=== PATIENT | female | born 1975 | race Caucasian/White ===

== ENCOUNTER 2020-06-07 12:16 | Inpatient (IN) | payer OTHER ==
[~2020-06-07] VITALS: Ht 180.3 cm; Wt 128.1 kg
[2020-06-07] VITALS (14 sets, daily range): BP systolic 122–172; BP diastolic 68–114
--- NOTE | ~2020-06-07 | HC ---
[facility] [place] [address] CONSULTATION Name: JACOB JOHNSON Room #: 242-P ADM IN M.R.#: [id number] Admission: 06/07/20 Attend Phys: Cedric Escalera MD Discharge: Date of : 77 Report #: [id number] THIS REPORT FOR: cc: FERCHO - No family physician/PCP FAM - No family physician/PCP Shaka Garzon MD ~ DATE OF SERVICE: 06/07/2020 HISTORY OF PRESENT ILLNESS: This 44-year-old female patient who was seen by me because she started having weakness and numbness on the left side and that was associated with chest pain. She apparently had similar symptoms in [place] and she was diagnosed with TIA or a small stroke and was given TPA. She recovered from that. She had another episode before that. Initially, she gave a history that her MRI showed a couple of spots, but we had no records. She does have risk factors like diabetes and hypertension. She does have a family history of heart attack and stroke. REVIEW OF SYSTEMS: Positive for tremor. Tremor is in both hands. She does have a history of depression. She saw a psychiatrist about 3 years ago. Now, she just takes antidepressant from her family doctor. She works in a Dermatology office. I asked her whether she has more depression recently, I did not get a good answer. She is complaining of chest pain and she had similar symptoms last time and chest pain is not any better. I do not think they found any cause for her chest pain the last time she had those. That was a relevant 14-point review of system. PAST MEDICAL HISTORY: Positive for TIA. FAMILY HISTORY: Positive for stroke as well as heart attack. SOCIAL HISTORY: She drinks alcohol on special occasions. PHYSICAL EXAMINATION: Was carried out numerous times. She is alert. She is responsive. She never had any speech difficulty. On cranial nerve examination, She has no hemianopsia. There is no facial weakness I can appreciate. She does have some subjective symptom there. Objectively, she says she feel pinprick on both sides. In the left hand she is able to raise against the gravity, but then instead of coming down in jerking movement, she just fall in a very unusual fashion, same is true with the left leg. She is able to appreciate the pinprick and she says she can appreciate sensation there. There is no meningeal sign in this patient. Cardiac examination is unremarkable. She has a monitor put in to look for atrial fibrillation. This is as complex case as it can become. When I saw her first time her symptoms look pretty unusual. I discussed with her that I cannot confirm or [address] [address] CONSULTATION Name: JACOB JOHNSON Room #: 242-P [facility] IN .R.#: [id number] Admission: 06/07/20 Attend Phys: Cedric Escalera MD Discharge: Date of : 77 Report #: [id number] rule out the stroke at this time, but the time in which the treatment can be given with the TPA is limited. So most of the time TPA is given before the stroke can definitely be confirmed in the patient like her. We talked about TPA and we talked about alternatives. She decided to wait until the CT angiogram and perfusion came. CT angiogram and perfusion is entirely normal. I went back and got it reviewed by another radiologist and looked at the films myself and it is a very symmetrical and normal study. The problem with the CT angiogram is that it is going to miss the lacunar CVA, which the patient is predisposed because of diabetes and hypertension. Our MRI machine is broken. It will not be fixed until tomorrow. I cannot get any information from anybody if arrangement can be made to transfer the patient to get an MRI done at some other place, but that will be a redundant information. This is because she is not a thrombectomy candidate because there is no embolus or thrombus is there. TPA time is either running out or has run out. Her symptoms started about 11:00, but then she said it may have started at 11:30, but even then time is close to running out and if MRI is arranged in another institution and is done and then interpreted, it will be beyond the limit for TPA. Fortunately, we were able to get hold of her doctor and she was able to pull the chart and she very nicely read the reports on her. Apparently, she had left sided symptoms and a left sided stroke as interpreted MRI the last time, but that does complicate the issue that the fact that she had a stroke that time will worry me. So, I came back and talked to the patient again. I discussed with her and her brother TPA again because that makes it a stronger indication for TPA, although the situation is still fluid and her symptoms are somewhat unusual and more importantly if she had a stroke on the left side that did not explain her left sided symptom and that does not explain her chest symptoms. The finding of last stroke does make the indication for TPA stronger and I discussed that part with her and her brother. I was going to proceed with the TPA, in fact they were all ready to mix the TPA, but both patient and the family decided they do not want TPA and they declined the TPA. In these circumstances, I think we will give our patient a loading dose of Plavix and she is already on aspirin, so we will continue and the other information the doctor provided is that they have not found any atrial fibrillation. In fact, her cardiac workup including catheterization was unremarkable as per conversation with the doctor. I spent more than 90 minutes of time taking care of this patient today and as the situation was very complex, but in the end although we were able to get some information from the doctor after trying a lot that did not explain the symptoms very well, but provided some information which made the indication for TPA stronger. However, the situation became redundant because the patient and the brother declined TPA. They are competent to make decision and we will do the Plavix and aspirin and we will do an MRI as soon as MRI can be done. More than [facility] [address] [place] [address] CONSULTATION Name: JACOB JOHNSON Room #: 242-P [facility] IN ..#: [id number] Admission: 06/07/20 Attend Phys: Cedric Escalera MD Discharge: Date of : 77 Report #: [id number] 90 minutes of time was spent taking care of this patient today and majority was spent counseling and coordinating the care as summarized above. By: [id number] Shaka Garzon MD /nt
[2020-06-07 13:05] LABS: ABSOLUTE NEUTROPHILS 5.4 thou/uL (1.4-8.2); BASOPHILS 1.1 % (0.0-2.0); EOSINOPHILS 1.4 % (0.0-3.0); HEMATOCRIT 42.4 % (37.0-47.0); HEMOGLOBIN 13.9 gm/dL (12.0-15.0); LYMPHOCYTES 24.9 % (24.0-44.0); MCH 29.6 pg (26.0-34.0); MCHC 32.8 g/dL (28.0-37.0); MCV 90.2 fL (80.0-100.0); MONOCYTES 5.6 % (1.0-8.0); RDW 14.4 % (10.5-14.5)
[2020-06-07 13:18] LABS: ANION GAP 10 mmol/L (7-16); BUN 15 mg/dL (7-18); CALCIUM 9.7 mg/dL (8.5-10.1); CHLORIDE 104 mmol/L (98-107); CO2 30 mmol/L (21-32); GLUCOSE 147 mg/dL (74-106); POTASSIUM 3.7 mmol/L (3.5-5.1); SODIUM 144 mmol/L (136-145)
[2020-06-07 13:20] LABS: APTT 26.2 Seconds (24.5-32.8); PROTIME 10.9 Seconds (9.3-11.4)
[2020-06-07 13:28] LABS: ALBUMIN 3.6 g/dL (3.4-5.0); SGOT 10 U/L (15-37); SGPT 18 U/L (14-59); TOTAL BILIRUBIN 0.4 mg/dL (0.2-1.0); TOTAL PROTEIN 7.8 g/dL (6.4-8.2); TROPONIN-I <0.06 ng/mL (<0.06)
[2020-06-07 13:35] LABS: LARGE PLATELETS FEW; PLATELET COUNT 256 thou/uL (150-400)
[2020-06-07] MEDS ORDERED: PROZAC40 MG PO (14:42)
[2020-06-07] MEDS ORDERED: KAPSPARGO SPRI100 MG PO (14:43)
[2020-06-07] MEDS ORDERED: ZESTRIL40 MG PO (14:43)
[2020-06-07] MEDS ORDERED: GLUCOPHAGE1000 MG PO (14:44)
[2020-06-07] MEDS ORDERED: PRIMIDONE 250M250 MG PO (14:44)
[2020-06-07] MEDS ORDERED: GLUCOTROL XL5 MG PO (14:45)
[2020-06-07] MEDS ORDERED: HYDROXYZINE PAM25 M1 PO (14:46)
[2020-06-07] MEDS ORDERED: PRAVASTATIN SOD10 MG PO (15:09)
[2020-06-07] MEDS ORDERED: TRULICITY1.5 MG/0.5 SUBQ (15:09)
[2020-06-07] MEDS ORDERED: OMEPRAZOLE40 MG PO (15:09)
--- NOTE | 2020-06-07 15:20 | NUR ---
This prevention coordinator at bedside. Dr Garzon consults with patient multiple times. He explains the risks and benefits of tPA administration. Family at bedside and brother on phone. Patient originally consents to tPA but then later denies consent for tPA. No medication was given. Patients NIHSS unchanged from previous assessment. Refusal signed by patient and witnessed by myself and ELIANE Padilla. Orders to continue stroke protocol with Plavix instead per Dr Garzon. ED RN notified.
--- NOTE | 2020-06-07 16:47 | NUR ---
ATTEMPTED TO CALL REPORT TO ICU. NO ANSWER
[2020-06-08] VITALS (16 sets, daily range): BP systolic 103–131; BP diastolic 56–86
[2020-06-08 00:06] LABS: GLYCOHEMOGLOBIN (HGB A1C) 5.7 % (4.8-5.6)
[2020-06-08 04:57] LABS: ABSOLUTE NEUTROPHILS 3.3 thou/uL (1.4-8.2); BASOPHILS 0.5 % (0.0-2.0); EOSINOPHILS 1.5 % (0.0-3.0); HEMATOCRIT 38.6 % (37.0-47.0); HEMOGLOBIN 12.8 gm/dL (12.0-15.0); MCH 29.9 pg (26.0-34.0); MCHC 33.2 g/dL (28.0-37.0); MCV 90.3 fL (80.0-100.0); MONOCYTES 5.8 % (1.0-8.0); PLATELET COUNT 203 thou/uL (150-400); POLYS 54.2 % (36.0-66.0); RBC 4.28 mil/uL (4.20-5.00); RDW 14.1 % (10.5-14.5); WBC 6.1 thou/uL (4.0-11.0)
[2020-06-08 05:03] LABS: ANION GAP 8 mmol/L (7-16); BUN 12 mg/dL (7-18); CHLORIDE 106 mmol/L (98-107); CHOLESTEROL 230 mg/dL (<200); CO2 29 mmol/L (21-32); CREATININE 0.8 mg/dL (0.6-1.0); GLUCOSE 107 mg/dL (74-106); HDL CHOLESTEROL 45 mg/dL (>40); LDL CHOLESTEROL 164 mg/dL (<100); POTASSIUM 3.4 mmol/L (3.5-5.1); SODIUM 143 mmol/L (136-145); TC:HDL 5.1 Ratio (Not establshd); TRIGLYCERIDE 107 mg/dL (<150); VLDL 21 mg/dL (<40)
[2020-06-08 05:26] LABS: SERUM ASSESSMENT Clear
--- NOTE | 2020-06-08 06:58 | EKG ---
[address] [address] ELECTROCARDIOGRAM REPORT Name: JACOB JOHNSON Room #: 242-P ADM IN M.R.#: [id number] Admission: 06/07/20 Attend Phys: Cedric Escalera MD Discharge: Date of : 77 Report #: [id number] [facility] ED Test Date: 2020-06-07 Test Time: 12:20:56 Pat Name: JACOB JOHNSON Department: Room: 242 Gender: F Veneer Taper: TEN : 1975 Requested By: Jazmyn Tolliver Order Number: [id number] : Cem Elizabeth Measurements Intervals [place] Rate: 72 P: DE: QRS: 8 QRSD: 90 T: -18 QT: 430 QTc: 471 Interpretive Statements NSR Borderline repolarization abnormality No previous ECG available for comparison Electronically Signed On 06-08-2020 6:58:41 CDT by Cem Elizabeth [email or web address] <ELECTRONICALLY SIGNED> By: Cem Elizabeth MD, [facility] 06/08/20 0658 1220 1220 Cem Elizabeth MD, FACC /EPI
--- NOTE | 2020-06-08 06:59 | EKG ---
[place] [address] [facility] [place] [address] ELECTROCARDIOGRAM REPORT Name: JACOB JOHNSON Room #: 242-P ADM IN M.R.#: [id number] Admission: 06/07/20 Attend Phys: Cedric Escalera MD Discharge: Date of : 77 Report #: [id number] [facility] Test Date: 2020-06-07 Test Time: 20:06:32 Pat Name: JACOB JOHNSON Department: Room: 242 P Gender: F Nascar Racer: FSCHWALBE : 1975 Requested By: Elisabeth Paz Order Number: [id number] MD: Cem Elizabeth Measurements Intervals [place] Rate: 55 P: 9 [place]: 126 QRS: 8 QRSD: 109 T: -21 QT: 493 QTc: 472 Interpretive Statements Sinus rhythm Borderline T abnormalities, inferior leads Compared to ECG 06/07/2020 12:20:56 T-wave abnormality now present Atrial flutter no longer present Electronically Signed On 06-08-2020 6:59:23 CDT by Cem Elizabeth [email or web address] <ELECTRONICALLY SIGNED> By: Cem Elizabeth MD, [facility] 06/08/20 0659 05 05 Cem Elizabeth MD, [facility] /EPI
--- NOTE | 2020-06-08 11:47 | NUR ---
chart review. cm visited with lloyd via phone call. intro to cm and transition of care, ie hh and rehab. "no dr here. [place] one in [place], just recently moved here, live on brother land in one of his apartments. independent when feeling well. drive vehicle, manage own medication. support from brother if needed. been to rehab facility in [place] after stroke then had hh after that. don't feel hh was that good. have cpap but need pick it up when go get rest of belonging in june, supplies from [facility] for cpap. no oxygen"/lloyd. cm left pcp list choice for her to review. will cont following as needed for dc needs.
--- NOTE | 2020-06-08 13:36 | NUR ---
ATTEMPTED TO CALL REPORT TO CCU, NO ANSWER.
--- NOTE | 2020-06-08 14:27 | NUR ---
PT TRANSFERRED TO CCU ROOM 202 VIA W/C IN STABLE CONDITION. ASSISTED PT TO BED FROM W/C. PT'S BELONGINGS MOVED W/ PT. INTRODUCED TO ACCEPTING RN. QUESTIONS ANSWERED.
--- NOTE | 2020-06-08 18:07 | NUR ---
PT TRANSFER FROM ICU TO CCU, PT STABLE AT THIS TIME AND A&OX4, TREMORS NOTED TO HANDS, LEFT SIDED WEAKNESS FROM PREVIOUS CVA. PT C/O CHEST PAIN AT THIS TIME NORCO GAVE TO PT PER PRN. CARDIAC R/U. PT VS. WNL. PT ATE 100% OF MEAL THIS EVENING AND IS RESTING IN BED AT THIS TIME.
[2020-06-09 04:45] VITALS: BP 119/82
[2020-06-09 05:26] LABS: HEMATOCRIT 40.3 % (37.0-47.0); HEMOGLOBIN 13.1 gm/dL (12.0-15.0); MCH 29.7 pg (26.0-34.0); MCHC 32.5 g/dL (28.0-37.0); MCV 91.1 fL (80.0-100.0); RBC 4.42 mil/uL (4.20-5.00); RDW 14.1 % (10.5-14.5); WBC 6.6 thou/uL (4.0-11.0)
[2020-06-09 05:49] LABS: CALCIUM 8.8 mg/dL (8.5-10.1); CREATININE 0.9 mg/dL (0.6-1.0); POTASSIUM 3.8 mmol/L (3.5-5.1)
[2020-06-09 07:35] VITALS: BP 119/76
--- NOTE | 2020-06-09 07:56 | NUR ---
[facility] 1899. NO DISTRESS NOTED. PT/VITALS STABLE. COMPLAINS OF INTEERMITTENT CHEST PAIN/LEFT ASPECT WITH MODERATE RELIEVE FROM HYDROCODONE. A/O X 4. PLEASANT. SR ON MONITOR. PROGRESSING WELL WITH POC. PLAN IS POSSIBLE DISCHARGE TODAY IF MRI LOOKS GOOD. WILL CONTINUE TO MONITOR AND FOLLOW WITH POC
[2020-06-09 11:23] VITALS: BP 128/86
[2020-06-09 15:04] VITALS: BP 136/92
--- NOTE | 2020-06-09 15:30 | NUR ---
patient transferred from ICU to 2N. 5N eval in process. Patient accepted to 5N/ Reviewed 5N rehab stay, team meeting and casemgt to assist with dc planning. patient reports her brother can drop off clothes for her. patient motivated for 5N. gave brochure. Covid test ordered.
[2020-06-09] MEDS ORDERED: PLAVIX 75 MG TA75 MG PO (15:55)
--- NOTE | 2020-06-09 17:42 | NUR ---
ASSUMED CARE SHIFT CHANGE. ASSESSMENTS CHARTED.MEDS GIVEN. C/O PAIN IN CHEST, MANAGED WITH PO PAIN MEDS. PT UP WITH THERAPY TOLERATING FAIR. REHAB CONSULT, PLAN FOR 5N REHAB TONIGHT AFTER COVID SWAB RESULTS BACK. PT CURRENTLY UP IN CHAIR, DENIES NEEDS AT THIS TIME. CONTINUING POC. WILL PASS ON REPORT TO NOC RN.
[2020-06-09 19:38] VITALS: BP 122/72
--- NOTE | 2020-06-09 21:06 | NUR ---
ASSUMED CARE AT [facility] OF SHIFT, AWAKE, ALERT AND ORIENTEDX4, SB ON THE MONITOR, DENIES CONCERNS, ASSESSMENTS CHARTED, MEDS GIVEN PER MAR, REPORT GIVEN TO REHAB NURSE, PT TRANSFERED TO REHAB WITH ALL BELONGINGS
== END 2020-06-09 21:00 | DRG 206 ==
LOC: ER 12:16 → EROBS 15:29 → ICU 15:29 → 2N 06-08 14:21
PROVIDERS: Nurse Practitioner; Nurse Practitioner Family; ADMIT Hospitalist; ATTEND Hospitalist
DX: M94.0 Chondrocostal junction syndrome [Tietze] (principal); I69.354 Hemiplegia and hemiparesis following cerebral infarction affecting left non-dominant side; R07.9 Chest pain, unspecified; I10 Essential (primary) hypertension; E11.9 Type 2 diabetes mellitus without complications; E78.5 Hyperlipidemia, unspecified; R25.1 Tremor, unspecified; Z20.822 Contact with and (suspected) exposure to COVID-19; F41.9 Anxiety disorder, unspecified; Z88.6 Allergy status to analgesic agent; Z88.0 Allergy status to penicillin; Z82.49 Family history of ischemic heart disease and other diseases of the circulatory system; Z79.899 Other long term (current) drug therapy; Z88.2 Allergy status to sulfonamides; Z82.3 Family history of stroke
CPT/HCPCS: 10078; 10081; 10203

== ENCOUNTER 2020-06-09 16:08 | Inpatient (IN) | payer OTHER ==
[~2020-06-09] VITALS: Ht 180.3 cm; Wt 122.5 kg
--- NOTE | ~2020-06-09 | HC ---
[facility] [place] [address] CONSULTATION Name: JACOB JOHNSON Room #: 513-P ADM IN M.R.#: [id number] Admission: 06/09/20 Attend Phys: José Antonio Garrett MD Discharge: Date of : 77 Report #: [id number] THIS REPORT FOR: cc: FERCHO - Marisela family physician/PCP FERCHO - Marisela family physician/PCP Boby Dueñas PhD ~ DATE OF SERVICE: 06/13/2020 NEUROBEHAVIORAL STATUS EXAM ATTENDING PHYSICIAN: José Antonio Garrett MD CREDIT COUNSELOR: Boby Dueñas, PhD. DATE OF CONSULTATION: 06/13/2020 CLINICAL PRESENTATION: The patient is a 44-year-old female admitted to the hospital with left-sided weakness and left chest pain on 06/07/2020. She carries a problem list that includes chest pain and CVA. She has recently moved to from [place] to [place] following a divorce. She is currently living in an apartment alone, but on her brother's property. Her assessment on admission to the rehabilitation unit was clinical CVA with worsening left-sided weakness and neuropathy, left-sided weakness is premorbid, a history of left parietal CVA, hypertension, tremor, anxiety, hyperlipidemia, and well controlled type 2 diabetes mellitus. A complete description of her medical condition and history can be found in her medical records. Neuropsychological consultation has been requested to provide assistance in the assessment of cognitive and emotional status and to provide recommendations and services. Prior to this most recent admission, she was living independently on her brother's estate. She has 1 brother and 1 sister. She is recently . The patient has no children. She is a high school graduate. The patient has recently been employed for [employer] until this most recent medical event. TECHNIQUES UTILIZED: Clinical interview, review of medical records, staff consultation and behavioral observations, mini mental status exam 2 standard version, clock drawing, and brief verbal fluency assessment. EXAMINATION FINDINGS: The patient was pleasant and cooperative with the assessment. She accurately described events surrounding her admission. There is no evidence of aphasia. Her thoughts are logical and goal oriented. There is no evidence of thought disorder. She reports problems with diminished [facility] [address] [place] [address] CONSULTATION Name: JACOB JOHNSON Room #: 513-P [facility] IN M.R.#: [id number] Admission: 06/09/20 Attend Phys: José Antonio Garrett MD Discharge: Date of : 77 Report #: [id number] appetite and tiredness and fatigue. She sleeps with the assistance of medication. She does not report recurrent feelings of depression or anxiety. She has had previous treatment for depression primarily utilizing medication. There is no reported substance abuse. Performance on the MMSE-2 brief version was in the impaired range with a raw score of 12/16, which is a T score of 23. She was 3/3 for initial registration, 3/5 for orientation to time, 5/[address] and 1/3 for immediate recall of 3 items after a brief time delay and distraction. Her performance on the MMSE-2 standard version is in the mild range of impairment with a raw score of 25/30, which is a T score of 37 and percentile rank of 10. She was 5/5 for serial sevens, 2/2 for naming, 1/1 for repetition, 3/3 for auditory comprehension. She could read and follow single command and write a sentence. The patient had difficulty with copying a simple geometric design. Clock drawing was within normal limits but had subtle difficulty with visual spatial organization. Verbal fluency was within normal limits for letter which is at the T score of 47 percentile rank of 34 and category which is average, with a T score of 44, percentile rank of 27. The patient is presenting with mild deficits in cognition primarily in regard to immediate recall and visual spatial construction. She is alert and oriented. DIAGNOSTIC IMPRESSION: 1. Vascular, mild neurocognitive disorder, without behavior disorder. 2. Depressive disorder by history. RECOMMENDATIONS: The patient will likely benefit from speech therapy to assist with the compensatory strategies to assist overall adjustment with focusing on memory and visual spatial construction. She may benefit by more formal neuropsych assessment upon discharge to clarify the severity of cognitive deficits. Thank you very much for allowing me to provide the consultation on this patient. By: [id number] Boby Dueñas, PhD /nt
--- NOTE | ~2020-06-09 | PLAN ---
[facility] [place] [address] REHAB UNIT PLAN OF CARE Name: JACOB JOHNSON Room #: 513-P ADM IN M.R.#: [id number] Admission: 06/09/20 Attend Phys: José Antonio Garrett MD Discharge: Date of : 77 Report #: [id number] THIS REPORT FOR: cc: FAM - No family physician/PCP FAM - No family physician/PCP José Antonio Garrett MD ~ DATE OF SERVICE: 06/12/2020 PROGRESS NOTE AND OVERALL PLAN OF CARE SUBJECTIVE: The patient was seen back today in followup. She was seen earlier, was in no distress. She has been pleasant. No specific complaints. She is appropriate. Noted to sleep well last night. She is working in therapies and is progressing with independence upper and lower body dressing. Working on higher level functionally and ADLs. Toilet transfers are independent. In physical therapy, she is independent with transfers, ambulating 150 feet, independent working on stairs. Working on balance activities. ASSESSMENT: 1. Clinical cerebrovascular accident with improved left-sided weakness. 2. History of diabetes mellitus with neuropathy. 3. History of left parietal cerebrovascular accident. 4. Hypertension. 5. Tremor. 6. Anxiety. 7. Hyperlipidemia. PLAN: The overall plan of care is based on the preadmission screen and information garnered from therapy assessments. 1. Estimated length of stay should be very short as she is doing very well. We would anticipate she should be able to go home over the next couple of days. We will be discussing further with therapy. 2. Medical prognosis is reasonably good. 3. Anticipated interventions includes the interdisciplinary acute inpatient rehabilitation program. 4. Anticipated functional outcomes would be for the patient to become modified independent with transfers, mobility, ADLs as well as higher level balance and full independence, so that she can return back to the home setting where she is alone. 5. Discharge destination would be back to the home setting. She does live in an apartment alone and her brother's property and will need to be fully independent. 6. Expected therapy by discipline includes PT and OT 1-1/2 hours per day each 5 days a week throughout the duration of the acute inpatient rehabilitation program. [address] [address] REHAB UNIT PLAN OF CARE Name: JACOB JOHNSON Room #: 513-P ADM IN .R.#: [id number] Admission: 06/09/20 Attend Phys: José Antonio Garrett MD Discharge: Date of : 77 Report #: [id number] The patient's prognosis for significant practical improvement within a reasonable period of time appears good. Given the patient's complex medical condition and risk of further medical complication, Rehabilitation Services could not be safely provided at a lower level of care such as a intermediate facility. By: [id number] José Antonio Garrett MD /PMT
[~2020-06-09 16:08] MED LIST: GLUCOPHAGE1000 MG PO; GLUCOTROL XL5 MG PO; HYDROXYZINE PAM25 M1 PO; KAPSPARGO SPRI100 MG PO; OMEPRAZOLE40 MG PO; PLAVIX 75 MG TA75 MG PO; PRAVASTATIN SOD10 MG PO; PRIMIDONE 250M250 MG PO; PROZAC40 MG PO; TRULICITY1.5 MG/0.5 SUBQ; ZESTRIL40 MG PO
[2020-06-09 21:15] VITALS: BP 142/78
--- NOTE | 2020-06-10 00:47 | NUR ---
PT ADMITTED THIS EVENING FROM CCU. VSS. ALL HS MEDICATION AND ACCU CHECK COMPLETED BEFORE LEAVING CCU THIS EVENING. PT ADMIT/ASSESSMENT/AND CONSENTS COMPLETED. PRN SLEEPING MEDICATION AND PAIN MEDICATION ORDERED BY ELIANE FIELD. SAT WNL ON RA WITH SPOT CHECKS. SCDS ON. SLEEPING WELL. WILL CONTINUE TO MONITOR FREQUENTLY.
[2020-06-10 08:00] VITALS: BP 130/82
--- NOTE | 2020-06-10 08:09 | NUR ---
chart review. lucia had visited lloyd when she was in icu via phone call. she recently moved here from [place]. has to go back to [place] to get the rest of her belongings including her CPAP,supplies come for [facility]. she living in apartment, alone on her brothers land. drives vehicle, manages her own medication. no new pcp here, cm provider her list choices while she was on 2n. " been in inpt rehab after stroke and had hh in [place]"/lloyd. will cont following as needed for dc needs.
[2020-06-10 09:01] LABS: HEMATOCRIT 40.5 % (37.0-47.0); HEMOGLOBIN 13.4 gm/dL (12.0-15.0); MCHC 33.2 g/dL (28.0-37.0); MCV 90.3 fL (80.0-100.0); RBC 4.49 mil/uL (4.20-5.00); RDW 14.3 % (10.5-14.5); WBC 5.3 thou/uL (4.0-11.0)
[2020-06-10 09:13] LABS: CALCIUM 9.2 mg/dL (8.5-10.1); CREATININE 0.8 mg/dL (0.6-1.0); POTASSIUM 4.1 mmol/L (3.5-5.1)
--- NOTE | 2020-06-10 11:30 | NUR ---
ASSUMED CARE AT 0700. SLEPT WELL. ALERT AND ORIENTATED X 3. FLAT. REPORTED NON CARDIAC CHEST PAIN ON THE LEFT SIDE AT 7/10 WITH PARTIAL RELIEF AFTER HYDROCODONE 1 TAB. LUNGS CLEAR, ABDOMEN SOFT AND HAD A BM 06/10. APPETITE FAIRLY GOOD. PARTICIPATES WITH THERAPY. UP WITH SBA TO BATHROOM. LEFT SIDED WEAKNESS WITH LIMITED MOBILITY. NOTED SLIGHT RESTING TREMORS. BLOOD SUGAR CHANGED TO BID, ON METFORMIN. WILL CONT TO MONITOR.
--- NOTE | 2020-06-10 12:59 | NUR ---
RD consult ordered for diet education heart healthy, diabetes. Pt working with therapy at time of visit and not available afternoon. Chart reviewed, BG are well controlled, A1C 5.7 however LDL 164, chol 230. On lipitor, metformin, and glipizide. Wt is obese, BMI 37.8. Admit to rehab unit for hx CVA, and chest pain. Presents low nutrition risk, and will address nutrition education needs during rehab stay. Also add heart healthy to current diet restriction.
[2020-06-10 20:00] VITALS: BP 127/80
--- NOTE | 2020-06-11 00:01 | NUR ---
PT ASSESSMENT COMPLETED AND VSS. MEDS GIVEN ORDERED AND WELL TOLERATED. FALL PRECAUTIONS IN PLACE. SUPPORTIVE FAMILY VISITED THIS EVENING. PT BG 65 EARLY DURING SHIFT. SNACK PROVIDED. BG UP TO 91. THEN PT ATE A SNACK PROVIDED BY FAMILY. PRN PAIN AND SLEEP MEDICATION WORKING WELL. WILL CONTINUE TO MONITOR FREQUENTLY.
[2020-06-11 07:15] VITALS: BP 99/59
--- NOTE | 2020-06-11 11:00 | NUR ---
ASSUMED CARE AT 0700. SLEPT WELL. ALERT AND ORIENTATED X 3, FLAT AFFECT. REPORTED NON CARDIAC PAIN IN THE L CHEST SITE AT 6 AND PAIN MANAGEABLE WITH HYDROCODONE 1 TAB. ALSO HAS L SIDED WEAKNESS WITH MOD HAND TAIL END RIDER. UP WITH SBA. LUNG CLEAR. APPETITE GOOD, LAST BM 06/10. DIURESING ADEQ. HAS A LOOP RECORDER AND [employer] NOTIFIED AND DEVICE INTERROGATED WITH NO SIGN OF ARRYTHMIA. PARTICIPATING WITH THERAPY WELL AND PROGRESSING TOWARDS GOAL. CONT TO MONITOR.
[2020-06-11 18:06] LABS: LYME ANTIBODY SCREEN* <0.91 ISR (0.00-0.90)
[2020-06-11 19:26] VITALS: BP 131/83
--- NOTE | 2020-06-12 04:07 | NUR ---
assumed care approx 1900 evening 06/11. pt lying in bed with head of bed elevated resting and watching tv. pt alert and oriented x4, appropriate and cooperative. pt took hs meds with water tolerating well. pt appears to be sleeping soundly. bed alarm on and call light in reach. will continue to monitor.
[2020-06-12 08:37] VITALS: BP 118/78
--- NOTE | 2020-06-12 16:36 | NUR ---
PATIENT CAN AMBUALTE IN ROOM WITHOUT ASSIST OR OVERSIGHT SHE HAS MET GOALS. SHE IS ALERT ORIENTED X4. NO COMPLAIN TO PAIN AT THIS TIME. IN AM SHE HAD NON CARDIAC STERNAL PAIN AND PRN MEDS WAS EFFECTIVE. WILL CONT WITH PLAN OF CARE.
[2020-06-12 19:27] VITALS: BP 122/77
--- NOTE | 2020-06-13 00:46 | NUR ---
assumed care approx 1899 evening 06/12. pt alert and oriented x4, pleasant and cooperative. pt modified indep in her room now. pt tolerating well. pt took hs meds with water tolerating well. call light in reach. will continue to monitor.
[2020-06-13 08:35] VITALS: BP 128/93
--- NOTE | 2020-06-13 13:56 | NUR ---
ASSUMED CARE AT 0700. SLEPT WELL. ALERT AND ORIENTATED X3. L RIB CAGE CHEST PAIN AT 6/10 AND MEDICATED WITH HYDROCODONE 1 TAB WITH GOOD RELIEF. DENIES ANY SHORT OF AIR. APPETITE GOOD, HAD A BM ON 06/11. ACCU CHECK BID ON METFORMIN AND GLYBURIDE. MOD IND IN THE ROOM WITH STEADY GAIT. DIURESING ADEQ. POSSIBLY DC THIS WEEK. WALKED WITH STAFF THIS MORNING.
[2020-06-13 19:29] VITALS: BP 133/86
--- NOTE | 2020-06-14 02:39 | NUR ---
UP WITH STABLE GAIT, MODIFIED INDEPENDENT IN ROOM, ANTICIPATES GOING HOME IN THE NEXT DAY OR TWO. PAIN MED AT HS FOR NON-CARDIAC CHEST PAIN. TOLERATING MEDS WHOLE WITH WATER.
[2020-06-14 07:20] VITALS: BP 142/89
--- NOTE | 2020-06-14 10:34 | NUR ---
Received awake on bed. Due medications given as prescribed, able to swallow meds w/o difficulty. On room air. Vital signs stable. With resting tremors at R hand- physician aware. On MS, not on telemetry; no complains and signs of chest pain, crushing sensation and heaviness- with loop recorded in place. On carb controlled diet- tolerating well; no nausea, no vomiting and no abdominal pain noted. On blood sugar monitoring- taken and recorded accordingly. Continent of bowel and bladder. No IV noted. Complained of pain, due PRN pain meds given as prescribed; lidocaine patch ordered as well. Possible discharge tomorrow. To continue monitoring patient.
--- NOTE | 2020-06-14 14:37 | NUR ---
cm notified by that going to dc on 06/15/20 will need to follow up with pcp after dc and has note to return to work.
[2020-06-14 19:15] VITALS: BP 131/87
--- NOTE | 2020-06-15 02:32 | NUR ---
INFORMED THAT WE REALLY ONLY NEED TO TAKE BLOOD SUGARS PRIOR TO TAKING DIABETES MEDS SUCH METFORMIN AND THAT HER SUGARS ARE DOING RATHER WELL. WAS READY TO TAKE OFF LIDODERM PATCH LAST EVENING BECAUSE IT ITCHED A TINY BIT. UP MOD I IN ROOM, STATES USUALLY ONLY HAS HER SLEEP INTERRUPTED TO VOID ONCE A NIGHT. RIGHT HAND HAS VISIBLE TREMORS AT REST.
[2020-06-15 07:25] VITALS: BP 103/70
[2020-06-15] MEDS ORDERED: PLAVIX 75 MG TA75 MG PO (08:53)
[2020-06-15] MEDS ORDERED: LIDOPATCH1 EACH TRANSDERM (08:53)
[2020-06-15] MEDS ORDERED: MELATONIN5 M1 PO (08:53)
[2020-06-15] MEDS ORDERED: VITAMIN D325 MC1 PO (08:53)
[2020-06-15 10:01] VITALS: BP 103/70
--- NOTE | 2020-06-15 11:00 | NUR ---
Received awake on bed. Due medications given as prescribed, able to swallow meds w/o difficulty. On room air. Vital signs stable. With tremors at R hand. On MS, not on telemetry; no complains and signs of chest pain, crushing sensation and heaviness. On carb controlled diet- tolerating well; no nausea, no vomiting and no abdominal pain noted. On blood sugar monitoring, taken and recorded accordingly. Contient of bowel and bladder, able to go to the toilet. No IV noted- physician aware. With Loop recorded in place- interrogated as reported by previous RN. Mod I in room. Complained of pain, due PRN PO pain meds given as prescribed; with scheduled lidocaine patch as well- applied as prescribed. Discharge orders made by Dr Garrett. Discharge instructions, follow up schedule and prescription given and instructed. Discharge forms signed. Pt fetched by her relative; brought out of the unit via wheelchair with her personal belongings. Patient discharged.
== END 2020-06-15 10:33 | disposition home or self-care (01) | DRG 56 ==
PROVIDERS: Nurse Practitioner Family; Psychiatry & Neurology Neuromuscular Medicine; ADMIT Physical Medicine & Rehabilitation; ATTEND Physical Medicine & Rehabilitation
PROC: 4A02XFZ Measurement of Cardiac Rhythm, External Approach (ICD-10-PCS; principal; 2020-06-11)
DX: I69.354 Hemiplegia and hemiparesis following cerebral infarction affecting left non-dominant side (principal); I63.9 Cerebral infarction, unspecified; I10 Essential (primary) hypertension; E11.40 Type 2 diabetes mellitus with diabetic neuropathy, unspecified; G31.84 Mild cognitive impairment of uncertain or unknown etiology; E78.5 Hyperlipidemia, unspecified; F32.9 Major depressive disorder, single episode, unspecified; R53.81 Other malaise; F41.1 Generalized anxiety disorder; G25.0 Essential tremor; Z79.899 Other long term (current) drug therapy; Z88.6 Allergy status to analgesic agent; Z88.0 Allergy status to penicillin; Z88.2 Allergy status to sulfonamides
CPT/HCPCS: 10112

== ENCOUNTER 2020-07-10 13:10 | Emergency (ER) | payer OTHER ==
[~2020-07-10] VITALS: Ht 180.3 cm; Wt 113.4 kg
[~2020-07-10 13:10] MED LIST changes: +LIDOPATCH1 EACH TRANSDERM; +MELATONIN5 M1 PO; +VITAMIN D325 MC1 PO
[2020-07-10 13:21] VITALS: BP 107/67
[2020-07-10] MEDS ORDERED: DOXYCYCLINE 10100 MG PO (13:41)
[2020-07-10] MEDS ORDERED: NORCO5 PO (14:07)
== END 2020-07-10 14:09 | disposition home or self-care (01) ==
LOC: ER 13:10
DX: L02.412 Cutaneous abscess of left axilla (principal); L02.411 Cutaneous abscess of right axilla; I10 Essential (primary) hypertension; E11.9 Type 2 diabetes mellitus without complications; E78.5 Hyperlipidemia, unspecified; Z86.73 Personal history of transient ischemic attack (TIA), and cerebral infarction without residual deficits; Z79.899 Other long term (current) drug therapy; Z88.0 Allergy status to penicillin; Z88.2 Allergy status to sulfonamides; Z88.5 Allergy status to narcotic agent

== ENCOUNTER 2020-10-21 15:01 | Emergency (ER) | payer OTHER ==
[~2020-10-21] VITALS: Ht 177.8 cm; Wt 113.4 kg
[~2020-10-21 15:01] MED LIST changes: +DOXYCYCLINE 10100 MG PO; +NORCO5 PO
[2020-10-21 15:07] VITALS: BP 156/84
[2020-10-21] MEDS ORDERED: DOXYCYCLINE 10100 MG PO (15:48)
== END 2020-10-21 15:51 | disposition home or self-care (01) ==
LOC: ER 15:01
DX: N75.1 Abscess of Bartholin's gland (principal); I10 Essential (primary) hypertension; E11.9 Type 2 diabetes mellitus without complications; E78.5 Hyperlipidemia, unspecified; Z79.899 Other long term (current) drug therapy; Z88.0 Allergy status to penicillin; Z88.2 Allergy status to sulfonamides; Z88.5 Allergy status to narcotic agent